=== PATIENT | female | born 1985 | race Caucasian/White ===

== ENCOUNTER 2017-09-01 08:18 | Inpatient (IN) ==
[2017-09-01] MEDS ORDERED: *HR* Nalbuphine 20 MG/ML AMPUL IVP PRN (08:30)
[2017-09-01] MEDS ORDERED: Metoclopramide 10 MG/2 ML VIAL IVP PRN (08:30)
[2017-09-01] MEDS ORDERED: Ringers Solution, Lactated 1,000 ML IVC SCH (08:30)
[2017-09-01] MEDS ORDERED: Famotidine 20 MG/2 ML VIAL IVP PRN (08:30)
[2017-09-01] MEDS ORDERED: Naloxone 0.4 MG/ML INJ IVP PRN (08:30)
[2017-09-01] MEDS ORDERED: Ondansetron 4 MG/2 ML VIAL IVP PRN (08:30)
[2017-09-01] MEDS ORDERED: Penicillin G Potassium 5,000,000 UNIT in 0.9 % Sodium Chloride Mini Bag 100 ML IVPB ONE (08:37)
[2017-09-01 09:33] LABS: Basophils % 0.4 %; Eosinophils # 0.1 K/mcL (0.0-0.6); Eosinophils % 1.7 %; Hematocrit 38.9 % (35.3-44.9); Hemoglobin 13.1 g/dL (11.5-15.4); Immature Granulocytes % 0.6 % (0-4); Lymphocytes % 28.2 %; Mean Corpuscular HGB Conc 33.7 g/dL (31.6-35.5); Mean Platelet Volume 10.7 fL (9.4-12.4); Monocytes # 0.4 K/mcL (0.0-1.3); Monocytes % 5.6 %; Neutrophils # 4.4 K/mcL (1.6-8.9); Platelet Count 148 K/mcL (140-400); Red Blood Count 4.37 M/mcL (3.82-4.97); Red Cell Distribution Width 13.4 % (11.5-14.5); Segmented Neutrophils % 63.5 %
[2017-09-01 09:39] LABS: Amphetamine Screen,Urine Negative ng/mL (Cutoff=1000); Barbiturate Screen,Urine Negative ng/mL (Cutoff=200); Benzodiazepines Screen,Urine Negative ng/mL (Cutoff=200); Cannabinoid Screen,Urine Negative ng/mL (Cutoff = 50); Cocaine Screen,Urine Negative ng/mL (Cutoff= 300); Opiate Screen,Urine Negative ng/mL (Cutoff=300); Phencyclidine Screen,Urine Negative ng/mL (Cutoff=25)
--- NOTE | 2017-09-01 10:34 | OB/GYN History & Physical ---
Addendum entered and electronically signed by Reginald Pinto DO 09/01/17 10: 52: GBS positive - PCN prophylaxis Original Note: Date of Encounter: 09/01/17 Time of Encounter: 10:29 Assessment and Plan (1) 38 weeks gestation of Current visit: Yes Status: Acute at 38w5d - no complications with SROM at 0600 this AM Admit to L&D Monitoring - baseline 120 with variability and accels - Category I [place] irregular Cervix 100/-2 per RN Plan for cytotec depending on contraction pattern (2) SROM (spontaneous rupture of membranes) Current visit: Yes Status: Acute History of Present Illness Chief complaint: Loss of Fluid HPI: Ms. Ross is a 31 year old female at 38w5d presenting to L&D with rupture of membranes around 0600 this AM. She reports good movement. Now starting to feel some contractions since being here. Denies vaginal bleeding or vaginal discharge. Reports this has been uncomplicated. She denies other past medical history. She denies fevers, chills, headaches, blurry vision , chest pain, dyspnea, abdominal pain, dysuria, or edema. Blood type O+ GBS positive Rubella Immune Varicella Immune All other serologies negative Past Med Surg Social Fam HX - Past Medical History Medical history: no medical history Psychiatric history: no psych history - Past Surgical History Surgical History: no surgical history - Social History Smoking Status: Never smoker Smokeless Tobacco Status: No Alcohol use: none Drug use: none - Family History Mother Living Status: Still Living Hx Family Cardiac Disorders: Yes (HTN) Hx Family Endocrine Disorder: Yes (diabetes) Obstetrical History - Pregnancies : 1 Para: 0 Term: 0 : 0 Ab's: 0 Livin - History/Complications History/Complications: None Medications and Allergies 3 Allergy/AdvReac Type Severity Reaction Status Date / Time No Known Allergies Allergy Verified 09/01/17 08:54 Review of System OB All systems PM: reviewed and no additional remarkable complaints except as stated Exam - Constitutional Constitutional: well developed, well nourished, no acute distress, average body habitus - HEENT HEENT: Normocephaly, Mucus Membranes Moist - Lungs Respiratory exam: CTAB - Cardiovascular Cardiovascular exam: RRR, +S1, +S2 - Abdomen Abdomen: Present: bowel sounds normal, gravid, non tender - Extremities Extremities exam: normal capillary refill, normal inspection - Vulva Vulva: bilateral: normal - Vagina Vagina: Present: normal moisture - Cervix Dilation: 3 (per RN) Effacement: 100 Station: -2 - Uterus Uterus exam: Present: normal size, normal contour - Anus/Rectum Anus/Rectum: Present: normal perianal skin - Comments Comments: FHT - baseline 120 with variability and accels - Category I [place] irregular Results Result Diagrams: 09/01/17 09:04 All other labs normal. - VTE Reasons for not Prescribing Prophylaxis: Treatment not Indicated - Low risk for VTE - Attending Attestation I examined this patient and my medical decision-making was reviewed with the Resident Physician. I agree with the documented findings, disposition and treatment plan as described. Subha Lea CNM
[2017-09-01] MEDS ORDERED: Penicillin G Potassium 2,500,000 UNIT in D5% in Water 100 ML IVPB SCH (12:00)
[2017-09-01] MEDS ORDERED: Oxytocin 20 units/ LR 1000 mL 20 UNIT/1,000 ML BAG IVC SCH ×2 (12:45→19:20)
--- NOTE | 2017-09-01 13:32 | Anesthesia Evaluation PreOp ---
Date of Encounter: 09/01/17 Time of Encounter: 12:57 - Past History Planned Operation: labor epidural Cardiac History: Denies any Significant Hx Pulmonary History: Denies Any Significant HX APRN History: Denies Any Significant HX Other Medical History: Denies Any Significant HX Anesthesia History: No Prior Anesthetic Complications, Past Anesthesia (wisdom teeth extracted. No problems with sedation. No family history of anesthetic problems.) Alcohol Use: none Drug use: none Medications and Allergies 3 Allergy/AdvReac Type Severity Reaction Status Date / Time No Known Allergies Allergy Verified 09/01/17 08:54 - Meds/Allergy Pre-op Review Medications Reviewed: Yes Allergies Reviewed: Yes Beta Blockers on Current Med List: No Anesthesia Results - Labs 09/01/17 09:04 Anesthesia Exam VSS ans FHTs. Height: 5'3" Weight: 76 kg NPO (# of Hours): >8 for solids. Pain Scale: 0 Pain Scale Used: Numeric (1 - 10) - HEENT Pupil (Motor): Pupils equal, EOMI Mallampati: II Teeth: Normal Oral Opening: Greater than 3 - APRN LOC: Oriented APRN Motor: Normal RUE, Normal LUE, Normal RLE, Normal LLE, Normal Face APRN Sensory: Normal: RUE, LUE, RLE, LLE, Face - Cardiac Rhythm: Regular - Pulmonary Breath Sounds: bilateral Clear Respiratory Effort: Symmetrical Anesthesia Assess/Plan ASA Score: 2 Modified [place] Scale for Level of Consciousness: Cooperative, oriented, and tranquil Anesthetic Plan: Regional Monitoring Plan: Standard Monitors
[2017-09-01] MEDS ORDERED: Bupivacaine-MPF 0.25% 10 ML VIAL EP ONE (13:34)
[2017-09-01] MEDS ORDERED: *HR* FentaNYL (PF) 100 MCG/2 ML VIAL EP ONE (13:34)
[2017-09-01] MEDS ORDERED: Epidural Premix (fent/bupiv) 110 ML EP SCH (13:45)
[2017-09-01] MEDS ORDERED: Methylergonovine 0.2 MG/ML AMPUL IM ONE ×2 (14:45→18:26)
[2017-09-01] MEDS ORDERED: Bupivacaine-MPF 0.25% 10 ML VIAL ONE (15:03)
[2017-09-01] MEDS ORDERED: Epidural Premix (fent/bupiv) 110 ML EP ONE (15:03)
[2017-09-01] MEDS ORDERED: *HR* FentaNYL (PF) 100 MCG/2 ML VIAL ONE (15:05)
--- NOTE | 2017-09-01 15:54 | Anesthesia Procedures ---
Date of Encounter: 09/01/17 Time of Encounter: 15:11 Procedures: Anesthesia - Epidural/Spinal Patient ID/Chart reviewed: Yes Patient examined: Yes OB Eval: Gestational age: 38 OB Eval: : 1 OB Eval: Hx Para: 0 OB Eval: Dilated at (cm): 7 OB Eval: Contractions: Non-stressed pattern Consent Obtained: Yes Supplemental Oxygen: None/Room Air Site Prep: Aseptic Technique, Sterile prep and drape, Povidone-Iodine 1% Patient position: upright Local Anesthetic: Lidocaine 1% Amount of Local Anesthetic used: 5 Touhy Needle Gauge: 18 Touhy Needle Depth (cm): 5 Catheter Depth at Skin (cm): 15 Test Dose (1.5% Lido + Epi): Volume given (mls): 3 Test Dose Result: Negative Loading Dose: 0.25% Marcaine (mls): 8 Loading Dose: Fentanyl (mcg): 100 Loading Dose Administered: Thru Catheter Infusion Med: 0.125% Bupivacaine w/ 2 mcg/ml Fentanyl Infusion Rate (mls/hr): [address]: Tegaderm, Tape Interspace Used: L4-L5 Loss of Resistance (ADRIEN): Yes Blood: No CSF: No Paresthesia: No Procedure: Attempted to initially place epidural at L2-3 and L3-4 without success. Spaces very narrow, encountered only bone at both attempts. Vitals + FHT's: 3 Vital Signs Time 1511 1540 1545 1550 BP 119/74 129/70 123/69 120/72 Pulse 78 76 65 73 FHTs 138 116 125 132
--- NOTE | 2017-09-01 18:40 | OB/GYN Procedure Note ---
Delivery - Delivery Date: 09/01/17 Provider: Scarlet Lea Intrapartum events: none Delivery induction: none Delivery augmentation: pitocin Delivery monitor: external FHT, external uterine Anesthesia: epidural Estimated Blood Loss: 400 - Infant (s) A Infant Delivery Date: 09/01/17 Delivery Time: 17:31 Presentation: vertex Position: SHARAD Route of delivery: Gender: Male Viability: Viable Pounds: 7 Ounces: 11 Weight Gram: 3.475 kg at 1 minute: 9 at 5 mins: 9 Shoulder Dystocia: not encountered Specimens collected: cord blood Placenta: spontaneous - Repair Episiotomy: none Laceration Description: Periurethral, Perineal - 2nd Degree, Superficial - Complications Delivery complications: none Delivery comments: Patient progressed to complete and pushed to spontaneous vaginal delivery of viable vigorous male infant in the SHARAD position. placed on maternal abdomen. No nuchal cord, no meconium, and no shoulder dystocia encountered. Cord double clamped and cut when pulsations ceased. Apgars were 9 and 9 at 1 and 5 minutes of age. Spontaneous delivery of placenta; appears grossly intact with 3 vessel cord. Upon inspection, a hemostatic periclitoral laceration is noted and left to heal by second intention. A second degree is also noted and repaired with 3-0 vicryl in the usual fashion. EBL 400mL. Infant and mother stable in recovery in skin to skin. Dr Doe notified of delivery. - Disposition Mom disposition: stable in LDR disposition: stable in LDR
[2017-09-01] MEDS ORDERED: Measles/Mumps/Rubella Vacc 0.5 ML VIAL SQ PRN (19:20)
[2017-09-01] MEDS ORDERED: Mag Hydrox/Al Hydrox/Simeth 30 ML UDC PO PRN (19:20)
[2017-09-01] MEDS ORDERED: Rho Immune Globulin 1,500 UNIT SYRINGE IM PRN (19:20)
[2017-09-01] MEDS ORDERED: Acetaminophen 325 MG TABLET PO PRN (19:20)
[2017-09-01] MEDS ORDERED: Benzocaine/Menthol 56 GM AEROSOL SPRAY TP PRN (19:20)
[2017-09-01] MEDS ORDERED: Sennosides 8.6 MG TABLET PO PRN (19:20)
[2017-09-01] MEDS ORDERED: Oxytocin 20 units/ LR 1000 mL 20 UNIT/1,000 ML BAG IVC ONE (19:20)
[2017-09-01] MEDS ORDERED: Lanolin 7 G OINT...G. TP PRN (22:10)
[2017-09-02 04:38] LABS: Basophils % 0.4 %; Eosinophils # 0.1 K/mcL (0.0-0.6); Eosinophils % 0.9 %; Hematocrit 35.9 % (35.3-44.9); Hemoglobin 11.8 g/dL (11.5-15.4); Immature Granulocytes % 0.4 % (0-4); Lymphocytes # 2.5 K/mcL (0.6-4.6); Lymphocytes % 24.3 %; Mean Corpuscular HGB Conc 32.9 g/dL (31.6-35.5); Mean Corpuscular Hemoglobin 29.2 pg (28.0-33.3); Mean Corpuscular Volume 88.9 fL (83.0-100.0); Mean Platelet Volume 10.6 fL (9.4-12.4); Monocytes # 0.5 K/mcL (0.0-1.3); Monocytes % 5.1 %; Neutrophils # 7.1 K/mcL (1.6-8.9); Platelet Count 136 K/mcL (140-400); Red Blood Count 4.04 M/mcL (3.82-4.97); Red Cell Distribution Width 13.6 % (11.5-14.5); Segmented Neutrophils % 68.9 %
[2017-09-02] MEDS: Ibuprofen 600 MG TABLET PO PRN ×2 (04:52→11:27)
[2017-09-02] MEDS ORDERED: Prenatal Vit/FA 1 EACH TABLET PO SCH (09:00)
[2017-09-02 09:23] VITALS: BP 112/75
--- NOTE | 2017-09-02 11:55 | Discharge Summary ---
Date of Encounter: 09/02/17 Time of Encounter: 11:53 - Discharge Diagnosis (1) Status post vaginal delivery Priority: Primary Status: Acute Comments: PPD#1 s/p . Pt doing well with no complaints\ Pain controlled. Tolerating po intake, ambulating well, voiding well Pt may be discharged (2) 38 weeks gestation of Priority: Secondary Status: Acute (3) SROM (spontaneous rupture of membranes) Priority: Secondary Status: Acute - Discharge Medications Prescriptions: Ibuprofen [Motrin] 600 mg PO Q6HR PRN #60 tablet PRN Reason: Cramping Benzocaine/Menthol [place] [Dermoplast [place]] 1 appl TP QID PRN #1 aerosol PRN Reason: See Comments Docusate [Colace] 100 mg PO BID PRN #60 capsule PRN Reason: Constipation Ferrous Sulfate 325 mg PO DAILY #30 tablet Lanolin [Lansinoh] 1 appl TP TID PRN #1 oint...g. PRN Reason: Sore Nipples Home Medications: Benzocaine/Menthol [place] [Dermoplast [place]] 1 appl TP QID PRN #1 aerosol [Rx] Docusate [Colace] 100 mg PO BID PRN #60 capsule 09/02/17 [Rx] Ferrous Sulfate 325 mg PO DAILY #30 tablet 09/02/17 [Rx] Ibuprofen [Motrin] 600 mg PO Q6HR PRN #60 tablet 09/02/17 [Rx] Lanolin [Lansinoh] 1 appl TP TID PRN #1 oint...g. 09/02/17 [Rx] Vit/FA 1 each PO DAILY tablet 09/02/17 [Rx] Allergies/Adverse Reactions: 3 Allergy/AdvReac Type Severity Reaction Status Date / Time No Known Allergies Allergy Verified 09/01/17 08:54 Data Procedures and tests throughout hospitalization: Laboratory Tests 09/01/17 09/01/17 09/02/17 09:04 09:04 04:22 WBC 7.0 10.3 RBC 4.37 4.04 Hgb 13.1 11.8 Hct 38.9 35.9 MCV 89.0 88.9 MCH 30.0 29.2 MCHC 33.7 32.9 RDW 13.4 13.6 Plt Count 148 136 L MPV 10.7 10.6 Immature Gran % 0.6 0.4 Seg Neutrophils % 63.5 68.9 Lymphocytes % 28.2 24.3 Monocytes % 5.6 5.1 Eosinophils % 1.7 0.9 Basophils % 0.4 0.4 Neutrophils # 4.4 7.1 Lymphocytes # 2.0 2.5 Monocytes # 0.4 0.5 Eosinophils # 0.1 0.1 Basophils # 0.0 0.0 Urine Opiates Screen Negative Ur Barbiturates Screen Negative Ur Phencyclidine Scrn Negative Ur Amphetamines Screen Negative U Benzodiazepines Scrn Negative Urine Cocaine Screen Negative U Marijuana (THC) Screen Negative Labs on day of discharge: Labs from last 24 hours 09/02/17 04:22 WBC 10.3 RBC 4.04 Hgb 11.8 Hct 35.9 MCV 88.9 MCH 29.2 MCHC 32.9 RDW 13.6 Plt Count 136 L MPV 10.6 Immature Gran % 0.4 Seg Neutrophils % 68.9 Lymphocytes % 24.3 Monocytes % 5.1 Eosinophils % 0.9 Basophils % 0.4 Neutrophils # 7.1 Lymphocytes # 2.5 Monocytes # 0.5 Eosinophils # 0.1 Basophils # 0.0 Date of admission: 09/01/17 08:18 Primary care physician: PCP NONE Consults: 09/01/17 19:[address] Sql Developer [CONS] Routine Comment: Vaginal delivery, consult needed Discharging clinician: Reginald Pinto Anticipated date of discharge: 09/02/17 - Patient Status Disposition: Home, Self-Care Condition: Good Functional capacity at discharge: independent ambulation Overall status at discharge: patient is progressing back to baseline - Discharge Instructions Follow Up With: NONE,PCP [Primary Care Provider] - Additional Instructions: Take medications as prescribed Feed your baby every 2-3 hours Follow-up with OB in 6 weeks - Diet and Activity Activity: increase activity as tolerated Diet: advance to your usual diet Hospital Course Reason for admission: rupture of membranes Delivery: Episiotomy: none Laceration: 2nd degree (perineal), other (periurethral) Other procedures: none complications: none Discharge diagnosis: IUP at term delivered baby: male Hospital course: - Delivery Date: 09/01/17 Provider: Scarlet Lea Intrapartum events: none Delivery induction: none Delivery augmentation: pitocin Delivery monitor: external FHT, external uterine Anesthesia: epidural Estimated Blood Loss: 400 - (s) A Infant Delivery Date: 09/01/17 Delivery Time: 17:31 Presentation: vertex Position: SHARAD Route of delivery: Gender: Male Viability: Viable Pounds: 7 Ounces: 11 Weight Gram: 3.475 kg at 1 minute: 9 at 5 mins: 9 Shoulder Dystocia: not encountered Specimens collected: cord blood Placenta: spontaneous - Repair Episiotomy: none Laceration Description: Periurethral, Perineal - 2nd Degree, Superficial - Complications Delivery complications: none Pt doing well PPD#1 of . Meeting milestones. Pt may be discharged. Time Attestation: Total time spent providing and/or coordinating discharge services: Time Spent: Less than 30 minutes Exam - Constitutional Vitals: Temp Pulse Resp BP Pulse Ox 97.8 F 104 18 112/75 97 09/02/17 09:22 09/02/17 09:22 09/02/17 09:22 09/02/17 09:22 09/02/17 09:22 General appearance IM: A&O X 3, no acute distress - Respiratory Respiratory exam: Present: CTAB - Cardiovascular Cardiovascular exam IM: Present: RRR, +S1, +S2 - GI/Abdominal GI/Abdominal exam IM: normal bowel sounds, soft, no peritoneal signs - Uterine Tone: Firm Uterus Position: 1 Finger Above Umbilicus - Extremities Exam Extremities exam IM: Present: normal capillary refill, normal inspection - Neurological Exam Neurological exam: alert, no focal deficits - Psychiatric Additional comments: reports good mood
== END 2017-09-02 14:46 | disposition home or self-care (01) | DRG 775 ==
LOC: 1NENULAB → OBSVTOIN 08:18 → 1NENUOBS 21:10
PROVIDERS: ADMIT Obstetrics & Gynecology; ATTEND Obstetrics & Gynecology

== ENCOUNTER 2018-05-11 21:00 | Observation (INO) ==
[2018-05-11] MEDS ORDERED: Ringers Solution, Lactated 1,000 ML ONE (23:46)
--- NOTE | 2018-05-11 23:48 | OB/GYN History & Physical ---
Date of Encounter: 05/11/18 Time of Encounter: 23:45 Assessment and Plan (1) Ectopic Current visit: Yes Status: Acute Pt G2 para 1 female seen in office today which time she is basically asymptomatic except for some spotting in early with large. Beta-HCG yesterday at just over 7000. She had ultrasound showing probable right-sided ectopic and free fluid in the left adnexa. She was given options of expectant management versus methotrexate versus surgical management and was encouraged hospital admission, she desired to home. She did have labs drawn which did show hemoglobin 12.8 and a quantitative hCG of just over 9000. She has now had acute worsening of symptoms is now quite pale with abdominal guarding appears quite weak. Was admitted to hospital started to IVs give IV fluid hydration typed and crossed for 2 units. We did discuss with patient options this point options of time-limited to surgical exploration. We will plan laparoscopy with possible salpingostomy versus salpingectomy. Patient was aware of options was operative risks question answered and consents obtained. Qualifiers: Location of ectopic : tubal Intrauterine status: without intrauterine Laterality: right Qualified Code(s): O00.101 - Right tubal without intrauterine History of Present Illness Chief complaint: pelvic pain, bleeding, positive test HPI: Ms. Ross is a 32 year old female admitted 2 para 1 female with last menstrual period April 04 seen in office today with positive test with quantitative beta hCG of over 7000 yesterday and ultrasound today showing no intrauterine . There did appear to be a dilatation in the vaginal the right fallopian tube and significant amount of blood in the left adnexal region. The point patient was basically asymptomatic in terms of pain she was ambulating without difficulty. She was given option of expectant management, surgical management, methotrexate given her lack of symptoms. At that point it was offered an x-ray advised that she be admitted to the hospital but she declined this and desired to go home with instructions If her symptoms should worsen she should call. I did give her my cell phone number and she called later this evening stating she had worsening of pain now is diaphoretic and quite weak. Hemoglobin office has been 12.8. Quantitative beta hCG had gone up slightly. Because of the worsening symptoms was advised that she presented immediately to the hospital for direct admission. On arrival patient's laying comfortably with knees upwards she complains of pain and right shoulder she is pale and diaphoretic. Her pulse is 104 blood pressures 102/74. Past Med Surg Social Fam HX - Past Medical History Source: patient, old records reviewed Medical history: no medical history Psychiatric history: no psych history - Past Surgical History Surgical History: no surgical history - Social History Smoking Status: Never smoker Smokeless Tobacco Status: No Alcohol use: none Drug use: none - Family History Mother Living Status: Still Living Hx Family Cardiac Disorders: Yes (HTN) Hx Family Endocrine Disorder: Yes (diabetes) Medications and Allergies Benzocaine/Menthol [place] [Dermoplast [place]] 1 appl TP QID PRN #1 aerosol [Rx] Docusate [Colace] 100 mg PO BID PRN #60 capsule 09/02/17 [Rx] Ferrous Sulfate 325 mg PO DAILY #30 tablet 09/02/17 [Rx] Ibuprofen [Motrin] 600 mg PO Q6HR PRN #60 tablet 09/02/17 [Rx] Lanolin [Lansinoh] 1 appl TP TID PRN #1 oint...g. 09/02/17 [Rx] Vit/FA 1 each PO DAILY tablet 09/02/17 [Rx] 3 Allergy/AdvReac Type Severity Reaction Status Date / Time No Known Allergies Allergy Verified 09/01/17 08:54 Exam - Vital Signs Vital signs: Initial Vital Signs Temp Pulse Resp BP Pulse Ox 98.1 F 98 16 105/74 100 05/11/18 23:44 05/11/18 23:44 05/11/18 23:44 05/11/18 23:44 05/11/18 23:44 - Constitutional Constitutional: moderate distress, dusky, diaphoretic - HEENT HEENT: Pallor, EOMI, Mucus Membranes Dry - Neck Neck exam: full ROM - Lungs Respiratory exam: CTAB - Cardiovascular Cardiovascular exam: RRR - Abdomen Abdomen: Present: diffuse tenderness, guarding noted - Extremities Deep Tendon Reflex Grade: 2+ Normal - Adnexa Adnexa: bilateral: tenderness (pt with significant tenderness in bilat adnexa) Results All other labs normal.
[2018-05-12] MEDS ORDERED: Ringers Solution, Lactated 1,000 ML IVC ONE (00:02)
[2018-05-12] MEDS ORDERED: Ondansetron 4 MG/2 ML VIAL IVP PRN ×2 (00:03→03:27)
[2018-05-12] MEDS ORDERED: *HR* FentaNYL (PF) 100 MCG/2 ML VIAL IVP PRN ×2 (00:07→03:27)
[2018-05-12] MEDS ORDERED: Famotidine 20 MG/2 ML VIAL ONE (00:12)
[2018-05-12] MEDS ORDERED: Acetaminophen IV 1,000 MG/100 ML INFUS..BTL ONE (00:12)
[2018-05-12] MEDS ORDERED: Ringers Solution, Lactated 1,000 ML IVC SCH (00:15)
[2018-05-12] MEDS ORDERED: *HR* FentaNYL (PF) 100 MCG/2 ML VIAL IVP SCH (00:15)
--- NOTE | 2018-05-12 00:22 | Anesthesia Evaluation PreOp ---
Date of Encounter: 05/12/18 Time of Encounter: 00:30 - Past History Planned Operation: Laparoscopic Salpingectomy Cardiac History: Denies any Significant Hx Pulmonary History: Denies Any Significant HX NURSERY MANAGER History: Denies Any Significant HX Other Medical History: Denies Any Significant HX Anesthesia History: No Prior Anesthetic Complications : Yes (5 weeks ectopic) Test: Positive Alcohol Use: none Drug use: none Medications and Allergies Benzocaine/Menthol [place] [Dermoplast [place]] 1 appl TP QID PRN #1 aerosol [Rx] Docusate [Colace] 100 mg PO BID PRN #60 capsule 09/02/17 [Rx] Ferrous Sulfate 325 mg PO DAILY #30 tablet 09/02/17 [Rx] Ibuprofen [Motrin] 600 mg PO Q6HR PRN #60 tablet 09/02/17 [Rx] Lanolin [Lansinoh] 1 appl TP TID PRN #1 oint...g. 09/02/17 [Rx] Vit/FA 1 each PO DAILY tablet 09/02/17 [Rx] 3 Allergy/AdvReac Type Severity Reaction Status Date / Time No Known Allergies Allergy Verified 09/01/17 08:54 - Meds/Allergy Pre-op Review Medications Reviewed: Yes Allergies Reviewed: Yes Beta Blockers on Current Med List: No Anesthesia Results - Labs Laboratory Tests 05/11/18 05/11/18 16:15 16:15 Hgb 12.8 Hct 38.9 Plt Count 267 BUN 11 Creatinine 0.70 Anesthesia Exam O2 Sat Height 1.6 m Height 1.6 m Weight 56.6 kg Weight 56.6 kg O2 Sat by Pulse Oximetry 100 Vital Signs Temp Pulse Resp BP Pulse Ox 98.1 F 98 16 105/74 100 05/11/18 23:44 05/11/18 23:44 05/11/18 23:44 05/11/18 23:44 05/11/18 23:44 Height: 5'3 Weight: 124 lbs NPO (# of Hours): [place] Pain Scale: 4 - HEENT Pupil (Motor): Pupils equal, EOMI Mallampati: II Teeth: Normal Oral Opening: Greater than 3 - NURSERY MANAGER LOC: Oriented NURSERY MANAGER Motor: Normal RUE, Normal LUE, Normal RLE, Normal LLE, Normal Face NURSERY MANAGER Sensory: Normal: RUE, LUE, RLE, LLE, Face - Cardiac Rhythm: Regular Murmur: None JVD: No Carotid Bruit: No - Pulmonary Breath Sounds: bilateral Clear Respiratory Effort: Symmetrical Anesthesia Assess/Plan ASA Score: 1, E Modified [place] Scale for Level of Consciousness: Cooperative, oriented, and tranquil Anesthetic Plan: General Monitoring Plan: Standard Monitors Recovery Plan: PACU (Discussed GA, agrees to proceed)
[2018-05-12] MEDS ORDERED: *HR* FentaNYL (PF) 100 MCG/2 ML VIAL ONE (00:26)
[2018-05-12] MEDS ORDERED: *HR* Propofol 200 MG/20 ML VIAL IVP ONE (00:26)
[2018-05-12] MEDS ORDERED: Lidocaine -MPF 2% 2 ML VIAL ONE (00:27)
[2018-05-12] MEDS ORDERED: *HR* Rocuronium Bromide 50 MG/5 ML VIAL ONE (00:27)
[2018-05-12] MEDS ORDERED: Dexamethasone 4 MG/ML VIAL ONE (00:27)
[2018-05-12] MEDS ORDERED: Ondansetron 4 MG/2 ML VIAL ONE (00:27)
[2018-05-12 00:31] LABS: Hematocrit 32.2 % (35.3-44.9); Mean Corpuscular HGB Conc 33.5 g/dL (31.6-35.5); Mean Corpuscular Volume 89.4 fL (83.0-100.0); Mean Platelet Volume 10.3 fL (9.4-12.4); Platelet Count 233 K/mcL (140-400); Red Cell Distribution Width 13.2 % (11.5-14.5)
[2018-05-12 00:33] LABS: Hemoglobin 10.8 g/dL (11.5-15.4)
[2018-05-12] MEDS ORDERED: Bupivacaine-MPF 0.25% 10 ML VIAL ONE (00:52)
[2018-05-12] MEDS ORDERED: Lidocaine -MPF 4% 5 ML AMPUL ONE (01:15)
[2018-05-12] MEDS ORDERED: *HR* PHENYLEPHRINE 1,000 MCG/10 ML SYRINGE IVP ONE (01:44)
[2018-05-12] MEDS ORDERED: Neostigmine Methylsulfate 3 MG/3 ML SYRINGE ONE (02:17)
[2018-05-12] MEDS ORDERED: Ondansetron 4 MG/2 ML VIAL IVP ONE (02:44)
[2018-05-12] MEDS: *HR* Morphine 2 MG/ML SYRINGE IVP PRN ×5 (02:50→03:20)
[2018-05-12] MEDS: Ringers Solution, Lactated 1,000 ML IVC SCH ×2 (03:00→07:46)
--- NOTE | 2018-05-12 03:02 | OB/GYN Procedure Note ---
Laparoscopy Procedure - Diagnosis Date of procedure: 05/12/18 Pre-op diagnosis: ectopic Post-op diagnosis: same - Procedure Laparoscopy procedure: operative laparoscopy, other (Partial right salpingectomy ) Surgeon: Noé Mai Was there an assistant women's soccer coach present: No Anesthesia Type: General Estimated blood loss (cc): 600 (590 preop,10 post op) Complications: none Specimens: right fallopian tube Findings: Large amount of blood within the abdominal cavity measured approximate 590-600 mL. Markedly dilated right ampullary ectopic normal left fallopian tube Disposition: PACU Narrative: Patient's a 32-year-old female 2 para 1 with an approximate 5 weeks gestation with last menstrual period being April 04. She was seen in office today with bleeding with quantitative test over 7000. The point she had minimal pain with tingling without difficulty. She was given decision to be admitted versus methotrexate versus surgery and the patient stated she was having minimal pain requested to go home pending lab results. I did give patient knife and number. Lab results taking microcornea over 9000 hemoglobin 12.8 and she was given worsening pain she is feeling quite weak and instructed patient from the hospital which she did. Upon arriving here patient was somewhat tachycardic and appeared quite purulent having acute abdomen therefore decision was made to proceed with surgery. She was aware operative risks and signed appropriate consent. Description procedure: Patient was taken operating room where general anesthesia was administered. She is prepped draped in usual sterile fashion bladder was drained of clear urine. Cervix is visualized and grasped with single-tooth tenaculum and acorn uterine manipulators placed in the cervix. Scalpel was used to make a 5 mm incision below the umbilicus. 5 mm blunt trocar was introduced without difficulty. Upon entering insufflation was performed there was large amount of blood filling the pelvis well above the uterus. Was blood up above the liver. This point a 12 mm trochars placed the midline just above symphysis pubis. Another 5 mm trochars placed the right lower quadrant. Pull suction was used to suction out approximate 500-600 mL of blood. Left fallopian tube was normal. Right fallopian tube was markedly dilated with a ectopic in active labor portion. The tube was quite damaged and did not feel to be safely saved. This tube was grasped and pulled upwards LigaSure was used to go across the medial portion of the right fallopian tube was resected placed in the Endo Catch bag. Hemostasis was ensured. Further irrigation was performed. This point pneumoperitoneum was released trochars removed. Fascia was closed 0 Vicryl in interrupted manner. Skin edges reapproximated with 4-0 Vicryl. This point all sponge counts counts are correct patient was taken recovery in good condition.
[2018-05-12] MEDS ORDERED: Ibuprofen 600 MG TABLET PO PRN (03:27)
[2018-05-12] MEDS ORDERED: *HR* OxyCODONE/APAP 5/325 TABLET PO PRN (03:27)
--- NOTE | 2018-05-12 06:15 | Anesthesia Evaluation Post Op ---
Date of Encounter: 05/12/18 Time of Encounter: 03:00 - Vital Signs Vital Signs: Vital Signs/O2 Sat/Glucose, Most Current Temp Pulse Resp BP Pulse Ox 05/12/18 05:45 98.6 F 73 14 96/59 98 05/12/18 04:45 98.3 F 74 14 95/57 97 05/12/18 04:15 98.9 F 85 14 97/62 95 05/12/18 03:45 98.5 F 90 16 103/65 97 05/12/18 03:31 80 16 107/48 95 05/12/18 03:18 85 16 105/47 97 05/12/18 03:08 99.2 F 85 16 109/58 98 05/12/18 02:58 85 15 115/63 98 05/12/18 02:48 92 16 114/72 99 05/12/18 02:38 98.9 F 108 16 122/77 99 - Lungs Lungs: Clear Ascult./Percussion - Airway Airway: Non-obstructed - Cardiovascular Regular Rate - Mental Status Mental Status: Alert & Oriented, Answers Appropriately - Pain Pain Scale: 2 - Nausea Vomiting Nausea Vomiting: Not Present - Hydration Hydration: Ice chips - Discharge PostOp Status: Transfer Patient to floor
[2018-05-12 08:08] VITALS: BP 99/52
[2018-05-12 08:12] LABS: Hematocrit 24.4 % (35.3-44.9)
--- NOTE | 2018-05-12 09:10 | Discharge Summary ---
Outpatient Proc Discharge Plan - Plan Prescriptions: Ibuprofen [Motrin] 600 mg PO Q6HR PRN #40 tab PRN Reason: post op pain HYDROcodone/Acet 5/325 mg [[place] 5-325 mg] 1 tab PO Q4H PRN 7 Days #25 tab PRN Reason: post op pain Home Medications: Benzocaine/Menthol [place] [Dermoplast [place]] 1 appl TP QID PRN #1 aerosol [Rx] Docusate [Colace] 100 mg PO BID PRN #60 capsule 09/02/17 [Rx] Ferrous Sulfate 325 mg PO DAILY #30 tablet 09/02/17 [Rx] Ibuprofen [Motrin] 600 mg PO Q6HR PRN #60 tablet 09/02/17 [Rx] Lanolin [Lansinoh] 1 appl TP TID PRN #1 oint...g. 09/02/17 [Rx] Vit/FA 1 each PO DAILY tablet 09/02/17 [Rx] HYDROcodone/Acet 5/325 mg [[place] 5-325 mg] 1 tab PO Q4H PRN 7 Days #25 tab 05/12 [Rx] Ibuprofen [Motrin] 600 mg PO Q6HR PRN #40 tab 05/12/18 [Rx]
--- NOTE | 2018-05-12 09:12 | Discharge Summary ---
Outpatient Proc Discharge Plan - Plan Prescriptions: Ibuprofen [Motrin] 600 mg PO Q6HR PRN #40 tab PRN Reason: post op pain Ibuprofen [Motrin] 600 mg PO Q6HR PRN #30 tablet PRN Reason: post op pain HYDROcodone/Acet 5/325 mg [[place] 5-325 mg] 1 tab PO Q4H PRN 7 Days #25 tab PRN Reason: post op pain Home Medications: Benzocaine/Menthol [place] [Dermoplast [place]] 1 appl TP QID PRN #1 aerosol [Rx] Docusate [Colace] 100 mg PO BID PRN #60 capsule 09/02/17 [Rx] Ferrous Sulfate 325 mg PO DAILY #30 tablet 09/02/17 [Rx] Ibuprofen [Motrin] 600 mg PO Q6HR PRN #60 tablet 09/02/17 [Rx] Lanolin [Lansinoh] 1 appl TP TID PRN #1 oint...g. 09/02/17 [Rx] Vit/FA 1 each PO DAILY tablet 09/02/17 [Rx] HYDROcodone/Acet 5/325 mg [[place] 5-325 mg] 1 tab PO Q4H PRN 7 Days #25 tab 05/12 [Rx] Ibuprofen [Motrin] 600 mg PO Q6HR PRN #30 tablet 05/12/18 [Rx] Ibuprofen [Motrin] 600 mg PO Q6HR PRN #40 tab 05/12/18 [Rx]
--- NOTE | 2018-05-12 09:28 | Discharge Summary ---
Date of Encounter: 05/12/18 Time of Encounter: 09:27 - Discharge Diagnosis (1) Ectopic Priority: Primary Status: Acute Comments: Doing well s/p right partial salpingectomy. Hemaglobin is low but pt is stable. Will D/c home with Vicodin, Motrin and instructions to take iron. Qualifiers: Location of ectopic : tubal Intrauterine status: without intrauterine Laterality: right Qualified Code(s): O00.101 - Right tubal without intrauterine - Discharge Medications Prescriptions: Ibuprofen [Motrin] 600 mg PO Q6HR PRN #40 tab PRN Reason: post op pain Ibuprofen [Motrin] 600 mg PO Q6HR PRN #30 tablet PRN Reason: post op pain HYDROcodone/Acet 5/325 mg [[place] 5-325 mg] 1 tab PO Q4H PRN 7 Days #25 tab PRN Reason: post op pain Home Medications: Benzocaine/Menthol [place] [Dermoplast [place]] 1 appl TP QID PRN #1 aerosol [Rx] Docusate [Colace] 100 mg PO BID PRN #60 capsule 09/02/17 [Rx] Ferrous Sulfate 325 mg PO DAILY #30 tablet 09/02/17 [Rx] Ibuprofen [Motrin] 600 mg PO Q6HR PRN #60 tablet 09/02/17 [Rx] Lanolin [Lansinoh] 1 appl TP TID PRN #1 oint...g. 09/02/17 [Rx] Vit/FA 1 each PO DAILY tablet 09/02/17 [Rx] HYDROcodone/Acet 5/325 mg [[place] 5-325 mg] 1 tab PO Q4H PRN 7 Days #25 tab 05/12 [Rx] Ibuprofen [Motrin] 600 mg PO Q6HR PRN #30 tablet 05/12/18 [Rx] Ibuprofen [Motrin] 600 mg PO Q6HR PRN #40 tab 05/12/18 [Rx] Allergies/Adverse Reactions: 3 Allergy/AdvReac Type Severity Reaction Status Date / Time No Known Allergies Allergy Verified 09/01/17 08:54 Data Procedures and tests throughout hospitalization: Laboratory Tests 05/11/18 05/11/18 05/11/18 23:55 23:55 23:55 WBC 15.7 H D RBC 3.60 L Hgb 10.8 L D Hct 32.2 L MCV 89.4 MCH 30.0 MCHC 33.5 RDW 13.2 Plt Count 233 MPV 10.3 Specimen Rejected Volume Blood Type O POSITIVE Antibody Screen NEGATIVE Crossmatch See Detail 05/12/18 07:55 WBC RBC Hgb 8.0 L D Hct 24.4 L MCV MCH MCHC RDW Plt Count MPV Specimen Rejected Blood Type Antibody Screen Crossmatch Labs on day of discharge: Labs from last 24 hours 05/12/18 05/11/18 05/11/18 07:55 23:55 23:55 WBC RBC Hgb 8.0 L D Hct 24.4 L MCV MCH MCHC RDW Plt Count MPV Specimen Rejected Volume Blood Type O POSITIVE Antibody Screen NEGATIVE Crossmatch See Detail 05/11/18 23:55 WBC 15.7 H D RBC 3.60 L Hgb 10.8 L D Hct 32.2 L MCV 89.4 MCH 30.0 MCHC 33.5 RDW 13.2 Plt Count 233 MPV 10.3 Specimen Rejected Blood Type Antibody Screen Crossmatch - Impressions Doing well, no orthostatic sx's. Date of admission: 05/11/18 23:21 Primary care physician: PCP NONE - Patient Status Disposition: Home, Self-Care Condition: Good Functional capacity at discharge: independent ambulation Overall status at discharge: patient is progressing back to baseline - Discharge Instructions Follow Up With: Noé Mai MD [Partnered Physician] - - Diet and Activity Activity: increase activity as tolerated Diet: advance to your usual diet Hospital Course [employer] Time Attestation: Total time spent providing and/or coordinating discharge services: Exam - Constitutional Vitals: Temp Pulse Resp BP Pulse Ox 98.8 F 69 16 99/52 97 05/12/18 08:06 05/12/18 08:06 05/12/18 08:06 05/12/18 08:06 05/12/18 08:06 General appearance IM: A&O X 3 - Respiratory Respiratory exam: Present: CTAB - Cardiovascular Cardiovascular exam IM: Present: RRR - GI/Abdominal GI/Abdominal exam IM: normal bowel sounds Incision: normal, dressed - Neurological Exam Neurological exam: oriented X3 - VTE Documentation of Mechanical Device: Intermittent pneumatic compression device
== END 2018-05-12 10:20 | disposition home or self-care (01) ==
LOC: 1NENUOBS
PROVIDERS: ADMIT Obstetrics & Gynecology; ATTEND Obstetrics & Gynecology

== ENCOUNTER 2019-11-07 17:26 | Inpatient (IN) ==
[~2019-11-07 17:26] MED LIST: *HR* FentaNYL (PF) 100 MCG/2 ML VIAL IVP PRN; Famotidine 20 MG/2 ML VIAL IVP PRN; Lidocaine 1% 20 ML MDV INFILT PRN; Metoclopramide 10 MG/2 ML VIAL IVP PRN; Naloxone 0.4 MG/ML INJ IVP PRN; Ondansetron 4 MG/2 ML VIAL IVP PRN
[2019-11-07] MEDS ORDERED: Ringers Solution, Lactated 1,000 ML IVC SCH (17:30)
[2019-11-07 19:12] LABS: Basophils % 0.3 %; Eosinophils # 0.2 K/mcL (0.0-0.6); Eosinophils % 1.7 %; Hematocrit 37.4 % (35.3-44.9); Hemoglobin 11.8 g/dL (11.5-15.4); Immature Granulocytes % 0.8 % (0-4); Lymphocytes # 2.4 K/mcL (0.6-4.6); Lymphocytes % 27.1 %; Mean Corpuscular HGB Conc 31.6 g/dL (31.6-35.5); Mean Corpuscular Hemoglobin 27.3 pg (28.0-33.3); Mean Corpuscular Volume 86.4 fL (83.0-100.0); Mean Platelet Volume 11.4 fL (9.4-12.4); Monocytes # 0.6 K/mcL (0.0-1.3); Monocytes % 6.2 %; Neutrophils # 5.7 K/mcL (1.6-8.9); Platelet Count 182 K/mcL (140-400); Red Blood Count 4.33 M/mcL (3.82-4.97); Red Cell Distribution Width 13.6 % (11.5-14.5); Segmented Neutrophils % 63.9 %
[2019-11-07] MEDS ORDERED: Oxytocin 20 units/ LR 1000 mL 20 UNIT/1,000 ML BAG IVC SCH (19:15)
[2019-11-07 19:22] LABS: Amphetamine Screen,Urine Negative ng/mL (Cutoff=1000); Barbiturate Screen,Urine Negative ng/mL (Cutoff=200); Benzodiazepines Screen,Urine Negative ng/mL (Cutoff=200); Cannabinoid Screen,Urine Negative ng/mL (Cutoff = 50); Cocaine Screen,Urine Negative ng/mL (Cutoff= 300); Opiate Screen,Urine Negative ng/mL (Cutoff=300); Phencyclidine Screen,Urine Negative ng/mL (Cutoff=25)
[2019-11-07] MEDS ORDERED: EPHEDrine 50 MG/ML VIAL IVP PRN (20:02)
[2019-11-07] MEDS ORDERED: *HR* FentaNYL (PF) 100 MCG/2 ML VIAL ONE (20:06)
[2019-11-07] MEDS ORDERED: Ropivacaine/PF 0.2% 20 ML VIAL ONE (20:07)
[2019-11-07] MEDS ORDERED: Epidural Premix (fent/bupiv) 110 ML EP SCH (20:15)
[2019-11-07] MEDS ORDERED: Terbutaline 1 MG/ML VIAL SQ ONE (21:06)
[2019-11-08] MEDS ORDERED: Acetaminophen 325 MG TABLET PO PRN (00:49)
[2019-11-08] MEDS ORDERED: Lanolin 7 G OINT...G. TP PRN (00:49)
[2019-11-08] MEDS ORDERED: Oxytocin 20 units/ LR 1000 mL 20 UNIT/1,000 ML BAG IVC SCH (00:49)
[2019-11-08] MEDS ORDERED: Benzocaine/Menthol 56 GM AEROSOL SPRAY TP PRN (00:49)
[2019-11-08] MEDS: Ibuprofen 600 MG TABLET PO PRN ×3 (01:01→18:36)
[2019-11-08 06:06] LABS: Basophils % 0.4 %; Eosinophils # 0.2 K/mcL (0.0-0.6); Eosinophils % 1.7 %; Immature Granulocytes % 0.6 % (0-4); Lymphocytes # 2.2 K/mcL (0.6-4.6); Lymphocytes % 20.7 %; Mean Corpuscular HGB Conc 31.3 g/dL (31.6-35.5); Mean Corpuscular Hemoglobin 26.9 pg (28.0-33.3); Mean Corpuscular Volume 85.9 fL (83.0-100.0); Mean Platelet Volume 10.6 fL (9.4-12.4); Monocytes # 0.5 K/mcL (0.0-1.3); Monocytes % 4.3 %; Neutrophils # 7.8 K/mcL (1.6-8.9); Platelet Count 141 K/mcL (140-400); Red Blood Count 3.61 M/mcL (3.82-4.97); Red Cell Distribution Width 13.8 % (11.5-14.5); Segmented Neutrophils % 72.3 %; White Blood Count 10.8 K/mcL (4.3-11.1)
[2019-11-08 06:09] LABS: Hemoglobin 9.7 g/dL (11.5-15.4)
[2019-11-08] MEDS ORDERED: Prenatal Vit/FA 1 EACH TABLET PO SCH (09:00)
[2019-11-08 16:33] VITALS: BP 105/70
== END 2019-11-08 22:50 | disposition home or self-care (01) | DRG 807 ==
LOC: 1NENULAB → 1NENUOBS 11-08 00:49
PROVIDERS: ADMIT Advanced Practice Midwife; ATTEND Advanced Practice Midwife